=== PATIENT | female | born 1950 | race Caucasian/White ===

== ENCOUNTER → 2022-02-28 | Outpatient (CLI) | payer MEDICARE, SELFPAY ==
--- NOTE | 2022-02-28 12:19 | RAD_ITS ---
STUDY: X-RAY - LUMBAR SPINE REASON FOR EXAM: Female, 71 years old. Segmental and somatic dysfunction of lumbar region. TECHNIQUE: 5 view(s) of the lumbar spine were obtained. COMPARISON: None FINDINGS: Osteopenia. Normal lumbar lordosis. There is no substantial scoliosis. There is a normal alignment of the vertebrae. Diffuse facet sclerosis. Diffuse intervertebral disc space narrowing with osteophyte formation most marked at T12-L1, L1-L2, L3-L4 and L5-S1. Cholecystectomy clips. Phleboliths. RAD/L/S Spine Min 4 Views IMPRESSION: Osteopenia with diffuse moderate lumbosacral spondylosis as described. No acute abnormality, evidence of erosive changes/fusion. Electronically Signed: Aaron Hester, at 13:32 EST ,
== END | disposition home or self-care (01) ==
DX: M99.03 Segmental and somatic dysfunction of lumbar region (principal)
CPT/HCPCS: 72110